=== PATIENT | female | born 1985 | race Caucasian/White ===

== ENCOUNTER 2023-04-16 10:55 | Outpatient (CLI) | payer OTHER, SELFPAY | END 2023-04-16 10:56 | disposition home or self-care (01) | PROVIDERS: Visit Provider Obstetrics & Gynecology | DX: N93.9 Abnormal uterine and vaginal bleeding, unspecified (principal) | CPT/HCPCS: 84443 ==

== ENCOUNTER 2023-04-21 15:59 | Outpatient (CLI) | payer OTHER, SELFPAY ==
--- NOTE | 2023-04-21 17:00 | CRLHL7_ITS ---
For Patients: As a result of the Century Cures Act, medical imaging exams and procedure reports are released immediately into your electronic medical record. You may view this report before your referring provider. If you have questions, please contact your health care provider. INDICATION: Abnormal bleeding COMPARISON: none TECHNIQUE: 2D de santiago scale and color Doppler images were acquired of the pelvis using a transabdominal and transvaginal approach. FINDINGS: Sonographic images demonstrate a normal size and smooth outer contour of the uterus. Uterus measures 9.4 cm in length by 4.0 cm in AP diameter by 5.0 cm in transverse dimension. The myometrium has a normal uniform echotexture. The endometrial lining appears normal and measures 4 mm in composite thickness. The right ovary measures 3.6 x 2.2 x 2.4 cm in size and the left ovary measures 3.9 x 2.5 x 2.9 cm. The ovaries demonstrate normal arterial and venous blood flow on color Doppler analysis. There are no suspicious fluid collections within the cul-de-sac. Simple circumscribed anechoic cyst left ovary measuring 3.5 x 2.2 x 3.0 cm. IMPRESSION: Endometrial thickness 4 millimeters. No uterine fibroid. Incidental simple left ovarian cyst measuring 3.5 cm. Dictated by Larry Caicedo MD @ 04/22/2023 9:45:29 AM (Electronically Signed)
== END 2023-04-21 16:00 | disposition home or self-care (01) ==
LOC: US 15:59
PROVIDERS: Visit Provider Obstetrics & Gynecology
DX: N93.9 Abnormal uterine and vaginal bleeding, unspecified (principal); R93.89 Abnormal findings on diagnostic imaging of other specified body structures; N83.202 Unspecified ovarian cyst, left side
CPT/HCPCS: 76830; 76856

== ENCOUNTER 2025-01-17 09:40 | Outpatient (CLI) | payer BC, SELFPAY | END 2025-01-17 09:41 | disposition home or self-care (01) | LOC: NFLDREF 01-18 17:23 | PROVIDERS: Visit Provider Obstetrics & Gynecology | DX: Z00.00 Encounter for general adult medical examination without abnormal findings (principal); Z13.6 Encounter for screening for cardiovascular disorders; Z13.1 Encounter for screening for diabetes mellitus | CPT/HCPCS: 80061; 82947 ==

== ENCOUNTER 2025-04-03 15:51 | Outpatient (CLI) | payer BC, SELFPAY ==
--- NOTE | 2025-04-03 16:20 | CRLHL7_ITS ---
For Patients: As a result of the Cures Act, medical imaging exams and procedure reports are released immediately into your electronic medical record. You may view this report before your referring provider. If you have questions, please contact your health care provider. INDICATION: BILATERAL SCREENING MAMMOGRAM, ASYMPTOMATIC 40 Y/O FEMALE COMPARISON: No prior mammograms, Baseline. TECHNIQUE: Digital mammogram in CC and MLO projections including computer-aided detection (CAD) and tomosynthesis. BREAST COMPOSITION: There are scattered areas of fibroglandular density. FINDINGS: No suspicious findings. ASSESSMENT: BI-RADS 1 Negative RECOMMENDATION: Annual screening mammogram. A lay language report of this examination will be provided to the patient. Dictated by: Floresita Castro MD @ 04/04/2025 07:25:25 (Electronically Signed)
== END 2025-04-03 15:52 | disposition home or self-care (01) ==
LOC: MAMMO 15:51
PROVIDERS: Visit Provider Obstetrics & Gynecology
DX: Z12.31 Encounter for screening mammogram for malignant neoplasm of breast (principal)
CPT/HCPCS: 77063; 77067